=== PATIENT | female | born 1975 | race Hispanic/Latino ===

== ENCOUNTER 2022-04-30 14:40 | Outpatient (CLI) | payer BC | END 2022-04-30 14:41 | disposition home or self-care (01) | LOC: CSHLAB 14:40 | PROVIDERS: ATTEND Family Medicine | DX: Z01.812 Encounter for preprocedural laboratory examination (principal); D25.9 Leiomyoma of uterus, unspecified; N92.0 Excessive and frequent menstruation with regular cycle; Z20.822 Contact with and (suspected) exposure to COVID-19 | CPT/HCPCS: 84703; 85027; 86850; 86900; 86901; 87811 ==

== ENCOUNTER 2022-05-05 06:09 | Day surgery (SDC) | payer BC ==
[2022-04-30 15:09] LABS: Hemoglobin 12.3 g/dL (12.0-15.5); Mean Corpuscular HGB CONC 33.7 g/dL (32.0-36.0); Mean Corpuscular Hemoglobin 29.1 pg (27.0-33.0); Mean Corpuscular Volume 86.5 fl (81.6-98.3); Mean Platelet Volume 10.2 fl (7.4-10.4); Platelet Count 282 10x3/uL (150-450); RBC Distribution Width 13.2 % (11.5-14.5); Red Blood Cell (RBC) Count 4.22 10x6/uL (3.90-5.03); White Blood Cell (WBC) Count 8.8 10x3/uL (3.5-10.5)
[2022-04-30 15:25] LABS: BHCG - Serum Negative (NEGATIVE); Pregs Control Background? CLEAR/WHITE (CLR/WHITE); Pregs Control Bar Appear? YES (CONTROL BAR)
[2022-05-01 11:42] VITALS: BMI 31.6
[2022-05-05] MEDS ORDERED: Gabapentin 300 MG CAP ONE (06:20)
[2022-05-05] MEDS ORDERED: Famotidine/PF 20 mg/2ml Vial ONE (06:21)
[2022-05-05] MEDS ORDERED: CeleCOXIB 100 MG CAP ONE (06:21)
[2022-05-05] MEDS ORDERED: Lidocaine 1% MPF 2 ML VIAL ONE (06:21)
[2022-05-05] MEDS ORDERED: Fentanyl 250 MCG/5 ML VIAL ONE (06:55)
[2022-05-05] MEDS ORDERED: Midazolam HCl 2 mg/2 ml Vial ONE ×2 (06:55→07:22)
[2022-05-05] MEDS ORDERED: PROPOFOL 20 ML ONE ×3 (06:55→07:02)
[2022-05-05] MEDS ORDERED: EPINEPHrine 1 MG/ML AMP ONE (06:55)
[2022-05-05] MEDS ORDERED: Methylene Blue 50 MG/10 ML AMPUL ONE (06:56)
[2022-05-05] MEDS ORDERED: Bupivacaine PF 0.5% 30 ML VIAL ONE (06:57)
[2022-05-05] MEDS ORDERED: Lidocaine 4% PF 5 ML AMP ONE (07:01)
[2022-05-05] MEDS ORDERED: Ketorolac Tromethamine 30 MG/ML VIAL ONE ×2 (07:01→08:52)
[2022-05-05] MEDS ORDERED: Rocuronium Bromide 10 MG/ML (10ML VIAL) ONE ×2 (07:01→08:21)
[2022-05-05] MEDS ORDERED: Dexamethasone 4 mg/ml Vial ONE (07:01)
[2022-05-05] MEDS ORDERED: Ondansetron PF 4 MG/2 ML Vial ONE (07:01)
[2022-05-05] MEDS ORDERED: SUGAMMADEX SODIUM 200 MG/2 ML VIAL ONE (07:15)
[2022-05-05] MEDS ORDERED: HYDROmorphone 0.5 MG/0.5 ML SYRINGE ONE (07:15)
[2022-05-05] MEDS ORDERED: CEFAZOLIN 2 GM VIAL ONE (07:26)
[2022-05-05] MEDS ORDERED: Fentanyl 100 MCG/2 ML VIAL ONE (09:36)
[2022-05-05] MEDS ORDERED: Ropivacaine 0.2% 550 ML 550 ML NERVE BLCK SCH (10:00)
== END 2022-05-05 13:10 | disposition home or self-care (01) ==
LOC: CSHSDC 06:09
PROVIDERS: ATTEND Obstetrics & Gynecology
PROC: 0UT74ZZ Resection of Bilateral Fallopian Tubes, Percutaneous Endoscopic Approach (ICD-10-PCS; principal; 2022-05-05)
PROC: 0UT94ZZ Resection of Uterus, Percutaneous Endoscopic Approach (ICD-10-PCS; principal; 2022-05-05)
DX: D25.9 Leiomyoma of uterus, unspecified (principal); N73.6 Female pelvic peritoneal adhesions (postinfective); N92.0 Excessive and frequent menstruation with regular cycle; N94.6 Dysmenorrhea, unspecified; Z79.899 Other long term (current) drug therapy; Z88.0 Allergy status to penicillin; Z98.51 Tubal ligation status; Z20.822 Contact with and (suspected) exposure to COVID-19
CPT/HCPCS: 84703; 85027; 86850; 86900; 86901; 87811; 88307; A4306; J0171; J0690; J1100; J1170; J1885; J2250; J2405; J2704; J2795; J3010; Q9968; S0020; S0028

== ENCOUNTER 2024-09-18 12:34 | Outpatient (CLI) | payer BC | END 2024-09-18 12:35 | disposition home or self-care (01) | LOC: CSHMAMMO 12:34 | PROVIDERS: ATTEND Physician Assistant | DX: Z12.31 Encounter for screening mammogram for malignant neoplasm of breast (principal) | CPT/HCPCS: 77063; 77067 ==